=== PATIENT | female | born 1960 | race African-American/Black ===

== ENCOUNTER 2019-12-16 05:56 | Emergency (ER) | payer MEDICARE, MEDICAID ==
[~2019-12-16] VITALS: Ht 167.6 cm; Wt 136.0 kg
[2019-12-16] MEDS ORDERED: ONDANSETRON HCL 4MG/2ML INJ IV STA (06:22)
[2019-12-16] MEDS ORDERED: MORPHINE SULFATE 4 MG/ML CPJ (NOT FOR IM USE) IV STA (06:22)
[2019-12-16 07:16] LABS: BASOPHILS % 0.8 % (0.0-2.0); EOSINOPHILS % 1.1 % (0.0-5.0); HEMOGLOBIN. 12.7 g/dL (12.0-16.0); MEAN CORPUSCULAR HEMOGLOBIN 30.6 pg (28.0-32.0); MEAN CORPUSCULAR VOLUME 93.6 fL (81.0-99.0); MEAN PLATELET VOLUME 8.7 fl (7.4-10.4); MONOCYTES % 8.5 % (2.0-8.0); NEUTROPHILS % 76.6 % (40.0-76.0); PLATELET 285 x1000/uL (130-400); RED BLOOD CELL COUNT 4.17 mill/uL (4.2-5.4); RED CELL DISTRIBUTION WIDTH 13.9 % (11.6-14.6)
[2019-12-16 07:20] LABS: PROTHROMBIN TIME 10.4 sec (9.6-11.0)
[2019-12-16 08:08] LABS: CHLORIDE 100 mEq/L (98-107)
[2019-12-16] MEDS ORDERED: SODIUM CHLORIDE 0.9% 1,000 ML IV ONE (08:12)
[2019-12-16] MEDS ORDERED: CEFTRIAXONE 1 G PREMIX 50 ML IV ONE (09:15)
[2019-12-16] MEDS ORDERED: METRONIDAZOLE 500 MG PREMIX 100 ML IV ONE (09:15)
[2019-12-16 13:30] VITALS: BP 143/70
[2019-12-16] MEDS ORDERED: MORPHINE SULFATE 4 MG/ML CPJ (NOT FOR IM USE) IV ONE (13:45)
== END 2019-12-16 14:03 | disposition short-term general hospital (02) ==
LOC: EDBD 05:56 → ER 05:56 → CANBEDREQ 10:44 → ER 14:03
DX: K57.80 Diverticulitis of intestine, part unspecified, with perforation and abscess without bleeding (principal); E11.9 Type 2 diabetes mellitus without complications; I10 Essential (primary) hypertension; J45.909 Unspecified asthma, uncomplicated
CPT/HCPCS: 36415; 71045; 74177; 80053; 83690; 84484; 85025; 85610; 93005; 96361; 96365; 96366; 96375; 96376; 99285; J0696; J2270; J2405; J3490

== ENCOUNTER 2023-04-13 11:03 | Emergency (ER) | payer OTHER, MEDICAID ==
[~2023-04-13] VITALS: Ht 172.7 cm; Wt 90.0 kg
[2023-04-13] MEDS ORDERED: METHYLPREDNISOLONE SOD SUCC 125 MG/2 ML VIAL IV STA (11:11)
[2023-04-13] MEDS ORDERED: SODIUM CHLORIDE 0.9% 1,000 ML IV ONE ×2 (11:15→16:30)
[2023-04-13 11:49] LABS: BASOPHILS % 0.3 % (0.0-2.0); EOSINOPHILS % 0.1 % (0.0-5.0); HEMATOCRIT. 42.2 % (36.0-48.0); HEMOGLOBIN. 13.7 g/dL (12.0-16.0); LYMPHOCYTES % 18.4 % (20.0-50.0); MEAN CORPUSCULAR HEMOGLOBIN 31.3 pg (28.0-32.0); MEAN CORPUSCULAR VOLUME 96.2 fL (81.0-99.0); MEAN PLATELET VOLUME 8.7 fl (7.4-10.4); NEUTROPHILS % 75.2 % (40.0-76.0); PLATELET 251 x1000/uL (130-400); RED BLOOD CELL COUNT 4.38 mill/uL (4.2-5.4); RED CELL DISTRIBUTION WIDTH 13.5 % (11.6-14.6)
[2023-04-13 11:58] LABS: CHLORIDE 103 mEq/L (98-107)
[2023-04-13] MEDS ORDERED: DILTIAZEM HCL 30MG TABLET PO ONE (13:45)
[2023-04-13] MEDS ORDERED: DILTIAZEM HCL 5MG/ML 5ML VIAL IV ONE ×2 (13:45→16:30)
[2023-04-13] MEDS ORDERED: LORAZEPAM 2MG/ML CPJ IV ONE (15:45)
[2023-04-13] MEDS ORDERED: DILTIAZEM HCL 5MG/ML 5ML VIAL IV NR (18:30)
[2023-04-14 06:00] VITALS: BP 140/94
== END 2023-04-14 08:00 | disposition left against medical advice (07) ==
LOC: ER 11:03 → CANBEDREQ 15:38 → MICUSO 16:28 → UNDOADMIN 16:28 → UNDODISIN 04-14 08:00
DX: R06.03 Acute respiratory distress (principal); E11.9 Type 2 diabetes mellitus without complications; Z20.822 Contact with and (suspected) exposure to COVID-19; I10 Essential (primary) hypertension; J44.9 Chronic obstructive pulmonary disease, unspecified
CPT/HCPCS: 36415; 71045; 80053; 83880; 84443; 84484; 85025; 85379; 87426; 93005; 96361; 96374; 96375; 96376; 99291; J2060; J2930; J3490; J7030